=== PATIENT | female | born 1945 | race Caucasian/White ===

== ENCOUNTER → 2017-09-06 | Outpatient (CLI) | payer MEDICARE ==
[2017-09-06 09:33] LABS: ALT 38 U/L (9-52); AST 26 U/L (14-36); Albumin 3.7 g/dL (3.5-5.0); Alkaline Phosphatase 60 U/L (38-126); Anion Gap 6 mmol/L; Blood Urea Nitrogen 14 mg/dL (7-17); Calcium 9.4 mg/dL (8.4-10.2); Carbon Dioxide 24 mmol/L (22-30); Chloride 111 mmol/L (98-107); Cholesterol 117 mg/dL (<200); Glucose 85 mg/dL (74-99); HDL Cholesterol 39 mg/dL (40-60); LDL Cholesterol,Calculated 50 mg/dL (0-99); Potassium 4.6 mmol/L (3.5-5.1); Sodium 141 mmol/L (137-145); Total Bilirubin 0.5 mg/dL (0.2-1.3); Triglycerides 140 mg/dL (<150)
[2017-09-06 18:48] LABS: Hemoglobin A1C 7.8 % (4.0-6.0)
== END | disposition home or self-care (01) ==
LOC: LABWHC1 08:34
PROVIDERS: ATTEND Internal Medicine Endocrinology, Diabetes & Metabolism
DX: E11.65 Type 2 diabetes mellitus with hyperglycemia (principal)
CPT/HCPCS: 36415; 80053; 80061; 82043; 82570; 83036

== ENCOUNTER 2017-10-22 03:36 | Emergency (ER) | payer MEDICARE ==
[2017-10-22 03:47] VITALS: RESP 16
[2017-10-22 03:53] LABS: Glucose,Whole Blood 118 mg/dL (75-99)
[2017-10-22] MEDS ORDERED: DEXTROSE 5%-0.9% NACL 1,000 ML IV SCH (04:00)
[2017-10-22 04:02] LABS: Basophils # (A) 0.1 k/uL (0-0.2); Basophils % (A) 0 %; Eosinophils # (A) 0.1 k/uL (0-0.7); Eosinophils % (A) 1 %; HGB 16.1 gm/dL (11.4-16.0); Lymphocytes # (A) 2.4 k/uL (1.0-4.8); Lymphocytes % (A) 20 %; MCH 32.2 pg (25.0-35.0); MCHC 32.8 g/dL (31.0-37.0); Mean Platelet Volume 6.5; Monocytes # (A) 0.7 k/uL (0-1.0); Monocytes % (A) 6 %; Neutrophils # (A) 8.5 k/uL (1.3-7.7); Neutrophils % (A) 71 %; Platelet Count 302 k/uL (150-450); RDW 13.2 % (11.5-15.5); WBC 11.9 k/uL (3.8-10.6)
[2017-10-22 04:12] LABS: INR 1.1 (<1.2); Partial Thromboplastin Time 23.8 sec (22.0-30.0); Prothrombin Time 10.4 sec (9.0-12.0)
[2017-10-22 04:14] LABS: Albumin 4.4 g/dL (3.5-5.0); Calcium 10.3 mg/dL (8.4-10.2); Potassium 4.7 mmol/L (3.5-5.1); Total Bilirubin 0.6 mg/dL (0.2-1.3); Total Protein 7.4 g/dL (6.3-8.2)
--- NOTE | 2017-10-22 04:45 | XR ---
EXAM: XR Chest, 2 Views CLINICAL HISTORY: ITS.REASON XR Reason: Pain TECHNIQUE: Frontal and lateral views of the chest. COMPARISON: No relevant prior studies available. FINDINGS: Lungs: No evidence for consolidation. Likely nipple shadow overlying the lateral left lower lung. Increased AP diameter of the lungs with appearance suggestive of chronic obstructive pulmonary disease. Pleural space: Unremarkable. No pneumothorax. Heart: Normal size. Mediastinum: Atherosclerosis of the aortic arch is noted. Bones/joints: Multilevel degenerative disc disease with disc space height loss and osteophytosis.. IMPRESSION: No acute radiographic findings. COPD.
[2017-10-22 05:05] VITALS: TEMP 97
[2017-10-22 05:12] LABS: Appearance,Urine Cloudy (Clear); Bacteria,Urine Moderate /hpf; Bilirubin,Urine Negative (Negative); Blood,Urine Moderate (Negative); Color,Urine Yellow; Glucose,Urine (UA) Trace (Negative); Ketones,Urine Negative (Negative); Leukocyte Esterase,Urine Trace (Negative); Mucus,Urine Rare /hpf; Nitrite,Urine Negative (Negative); Protein,Urine Trace (Negative); RBC,Urine 4 /hpf (0-5); Specific Gravity,Urine 1.011 (1.001-1.035); Squamous Epithelial Cell,Urine 2 /hpf (0-4); Urobilinogen,Urine <2.0 mg/dL (<2.0); WBC,Urine 4 /hpf (0-5)
[2017-10-22] MEDS ORDERED: cefTRIAXone IN SWFI 1,000 MG/10 ML SYRINGE IVP STA (05:58)
[2017-10-22 06:22] VITALS: BP 113/68; PULSE 70
--- NOTE | 2017-10-22 06:31 | ED ---
General Adult HPI - General Chief complaint: Nausea/Vomiting/Diarrhea Stated complaint: Hypoglycemia Time Seen by Provider: 10/22/17 03:45 Source: patient, EMS Mode of arrival: EMS Limitations: no limitations - History of Present Illness Initial comments: Patient presented to the ED via EMS for evaluation of hypoglycemia. Patient reports that she has been in her usual state of health, eating her usual diet, she took her usual dose of both short acting which is 5 units and long-acting which is 20 units of insulin at dinnertime, ate her dinner and went to bed. She reports that the neck showing she knows there were Paramedics in her house. at bedside reports that he woke during the night and noted the patient was cold, drenched in sweat and he could not wake her up. He checked her glucose and noted that it was in the 30s, 911 was called, EMS arrived on scene reported her glucose was 19. The establish an IV gave an amp of D50. The patient came awake and alert and oriented. They were encouraging her to eat and drink, she was asking for water but they gave her an [place] muffin with peanut butter and juice. She had been eating watermelon and when she attempted to eat the muffin with peanut butter she became nauseated and had a episode of vomiting at which time EMS advised that she needed to come to the ER for further management of her glucose. states that she has had one other episode of hypoglycemia similar to this. That episode also occurred in the summertime, patient reports that with very hot out she has trouble managing her glucose. - Related Data Previous Rx's Medication Instructions Recorded Nitrofurantoin Monohyd/M-Cryst 100 mg PO Q12HR #10 cap 10/22/17 [Macrobid] Allergies Allergy/AdvReac Type Severity Reaction Status Date / Time No Known Allergies Allergy Verified 10/22/17 03:47 Review of Systems ROS Statement: Those systems with pertinent positive or pertinent negative responses have been documented in the HPI. ROS Other: All systems not noted in ROS Statement are negative. Past Medical History Past Medical History: COPD, Diabetes Mellitus History of Any Multi-Drug Resistant Organisms: None Reported Past Surgical History: Orthopedic Surgery Past Psychological History: No Psychological Hx Reported Smoking Status: Current every day smoker Past Alcohol Use History: None Reported Past Drug Use History: None Reported General Exam - General Exam Comments Initial Comments: GENERAL: Patient is well-developed and well-nourished. Patient is nontoxic and well- hydrated and is in no distress. As noted that the patient's pants are somewhat difficult because she was diaphoretic however her sugar has been changed and her hair is dried HENT: Normocephalic, Atraumatic. Neck is soft and supple. No significant lymphadenopathy is noted. Oropharynx is clear. Moist mucous membranes. Neck has full range of motion without eliciting any pain. EYES: The sclera were anicteric and conjunctiva were pink and moist. Extraocular movements were intact and pupils were equal round and reactive to light. Eyelids were unremarkable. PULMONARY: Unlabored respirations. Good breath sounds bilaterally. No audible rales rhonchi or wheezing was noted. CARDIOVASCULAR: There is a regular rate and rhythm without any murmurs gallops or rubs. ABDOMEN: Soft and nontender with normal bowel sounds. SKIN: Skin is clear with no lesions or rashes and otherwise unremarkable. NEUROLOGIC: Patient is alert and oriented x3. Cranial nerves II through XII are grossly intact. Motor and sensory are also intact. Normal speech, volume and content. Symmetrical smile. MUSCULOSKELETAL: Normal extremities with adequate strength and full range of motion. No lower extremity swelling or edema. No calf tenderness. LYMPHATICS: No significant lymphadenopathy is noted PSYCHIATRIC: Normal psychiatric evaluation. Limitations: no limitations Limitations: no limitations Course Vital Signs 10/22/17 10/22/17 10/22/17 03:45 04:47 06:00 Temperature 97 F L Pulse Rate 79 79 70 Respiratory 16 16 16 Rate Blood Pressure 145/78 119/65 113/68 O2 Sat by Pulse 99 99 97 Oximetry Medical Decision Making - Medical Decision Making The patient was seen and evaluated, history is obtained from patient, EMS and at bedside Patient had a episode of hypoglycemia at home, this occurred during her sleep, he says woke her who tested her sugar was in the 30s, EMS tested her sugar and noted that it was in the teens, she was given an amp of D50 and her mental status improved. She was able to eat watermelon but upon trying to eat a [place] muffin with peanut butter she vomited at which time EMS advised she come to the ER for evaluation Patient denies any change in diet or recent illness. She reports she took her regular dose of insulin. She's been on insulin for 20 years and doesn't believe she made a mistake Labs and imaging were ordered to see any underlying infection or ischemia could be the cause of patient's glucose on her body Due to hypoglycemia D5 normal saline was ordered for maintenance fluid, this was hung however due to the patient's positioning none of the fluid infused After the patient's baseline aside from evidence of urinary tract infection, urine culture was obtained, Rocephin was given Patient has remained awake and alert with stable glucose. She was given a chicken salad sandwich which she ate as well as a box of apple juice. She tolerated both of these without vomiting. Her repeat glucose was 185. At this time the patient is eager for discharge home. She reports she is feeling quite well. I discussed with the patient options for decreasing her long-acting insulin and making sure that she eats couplets carbohydrates for dinner time. All questions pertaining to care were answered best of my ability return parameters were discussed patient was discharged home. - Lab Data Result diagrams: 10/22/17 03:54 10/22/17 03:54 Lab Results 10/22/17 10/22/17 10/22/17 Range/Units 03:41 03:54 03:54 WBC 11.9 H (3.8-10.6) k/uL RBC 5.00 (3.80-5.40) m/uL Hgb 16.1 H (11.4-16.0) gm/dL Hct 49.0 H (34.0-46.0) % MCV 98.0 (80.0-100.0) fL MCH 32.2 (25.0-35.0) pg MCHC 32.8 (31.0-37.0) g/dL RDW 13.2 (11.5-15.5) % Plt Count 302 (150-450) k/uL Neutrophils % 71 % Lymphocytes % 20 % Monocytes % 6 % Eosinophils % 1 % Basophils % 0 % Neutrophils # 8.5 H (1.3-7.7) k/uL Lymphocytes # 2.4 (1.0-4.8) k/uL Monocytes # 0.7 (0-1.0) k/uL Eosinophils # 0.1 (0-0.7) k/uL Basophils # 0.1 (0-0.2) k/uL PT (9.0-12.0) sec INR (<1.2) APTT (22.0-30.0) sec Sodium 141 (137-145) mmol/L Potassium 4.7 (3.5-5.1) mmol/L Chloride 106 (98-107) mmol/L Carbon Dioxide 23 (22-30) mmol/L Anion Gap 12 mmol/L BUN 18 H (7-17) mg/dL Creatinine 0.80 (0.52-1.04) mg/dL Est GFR (CKD-EPI)AfAm 86 (>60 ml/min/1.73 sqM) Est GFR (CKD-EPI)NonAf 75 (>60 ml/min/1.73 sqM) Glucose 113 H (74-99) mg/dL POC Glucose (mg/dL) 118 H (75-99) mg/dL POC Glu Assembly Machine Tender ID Rocky Nguyen Calcium 10.3 H (8.4-10.2) mg/dL Total Bilirubin 0.6 (0.2-1.3) mg/dL AST 30 (14-36) U/L ALT 36 (9-52) U/L Alkaline Phosphatase 76 (38-126) U/L Troponin I (0.000-0.034) ng/mL Total Protein 7.4 (6.3-8.2) g/dL Albumin 4.4 (3.5-5.0) g/dL Urine Color Urine Appearance (Clear) Urine pH (5.0-8.0) Ur Specific [place] (1.001-1.035) Urine Protein (Negative) Urine Glucose (UA) (Negative) Urine Ketones (Negative) Urine Blood (Negative) Urine Nitrite (Negative) Urine Bilirubin (Negative) Urine Urobilinogen (<2.0) mg/dL Ur Leukocyte Esterase (Negative) Urine RBC (0-5) /hpf Urine WBC (0-5) /hpf Ur Squamous Epith Cells (0-4) /hpf Urine Bacteria (None) /hpf Urine Mucus (None) /hpf 10/22/17 10/22/17 10/22/17 Range/Units 03:54 03:54 04:48 WBC (3.8-10.6) k/uL RBC (3.80-5.40) m/uL Hgb (11.4-16.0) gm/dL Hct (34.0-46.0) % MCV (80.0-100.0) fL MCH (25.0-35.0) pg MCHC (31.0-37.0) g/dL RDW (11.5-15.5) % Plt Count (150-450) k/uL Neutrophils % % Lymphocytes % % Monocytes % % Eosinophils % % Basophils % % Neutrophils # (1.3-7.7) k/uL Lymphocytes # (1.0-4.8) k/uL Monocytes # (0-1.0) k/uL Eosinophils # (0-0.7) k/uL Basophils # (0-0.2) k/uL PT 10.4 (9.0-12.0) sec INR 1.1 (<1.2) APTT 23.8 (22.0-30.0) sec Sodium (137-145) mmol/L Potassium (3.5-5.1) mmol/L Chloride (98-107) mmol/L Carbon Dioxide (22-30) mmol/L Anion Gap mmol/L BUN (7-17) mg/dL Creatinine (0.52-1.04) mg/dL Est GFR (CKD-EPI)AfAm (>60 ml/min/1.73 sqM) Est GFR (CKD-EPI)NonAf (>60 ml/min/1.73 sqM) Glucose (74-99) mg/dL POC Glucose (mg/dL) (75-99) mg/dL POC Glu Assembly Machine Tender ID Calcium (8.4-10.2) mg/dL Total Bilirubin (0.2-1.3) mg/dL AST (14-36) U/L ALT (9-52) U/L Alkaline Phosphatase (38-126) U/L Troponin I <0.012 (0.000-0.034) ng/mL Total Protein (6.3-8.2) g/dL Albumin (3.5-5.0) g/dL Urine Color Yellow Urine Appearance Cloudy H (Clear) Urine pH 5.0 (5.0-8.0) Ur Specific [place] 1.011 (1.001-1.035) Urine Protein Trace H (Negative) Urine Glucose (UA) Trace H (Negative) Urine Ketones Negative (Negative) Urine Blood Moderate H (Negative) Urine Nitrite Negative (Negative) Urine Bilirubin Negative (Negative) Urine Urobilinogen <2.0 (<2.0) mg/dL Ur Leukocyte Esterase Trace H (Negative) Urine RBC 4 (0-5) /hpf Urine WBC 4 (0-5) /hpf Ur Squamous Epith Cells 2 (0-4) /hpf Urine Bacteria Moderate H (None) /hpf Urine Mucus Rare H (None) /hpf 10/22/17 Range/Units 06:31 WBC (3.8-10.6) k/uL RBC (3.80-5.40) m/uL Hgb (11.4-16.0) gm/dL Hct (34.0-46.0) % MCV (80.0-100.0) fL MCH (25.0-35.0) pg MCHC (31.0-37.0) g/dL RDW (11.5-15.5) % Plt Count (150-450) k/uL Neutrophils % % Lymphocytes % % Monocytes % % Eosinophils % % Basophils % % Neutrophils # (1.3-7.7) k/uL Lymphocytes # (1.0-4.8) k/uL Monocytes # (0-1.0) k/uL Eosinophils # (0-0.7) k/uL Basophils # (0-0.2) k/uL PT (9.0-12.0) sec INR (<1.2) APTT (22.0-30.0) sec Sodium (137-145) mmol/L Potassium (3.5-5.1) mmol/L Chloride (98-107) mmol/L Carbon Dioxide (22-30) mmol/L Anion Gap mmol/L BUN (7-17) mg/dL Creatinine (0.52-1.04) mg/dL Est GFR (CKD-EPI)AfAm (>60 ml/min/1.73 sqM) Est GFR (CKD-EPI)NonAf (>60 ml/min/1.73 sqM) Glucose (74-99) mg/dL POC Glucose (mg/dL) 187 H (75-99) mg/dL POC Glu Assembly Machine Tender ID Rocky Nguyen Calcium (8.4-10.2) mg/dL Total Bilirubin (0.2-1.3) mg/dL AST (14-36) U/L ALT (9-52) U/L Alkaline Phosphatase (38-126) U/L Troponin I (0.000-0.034) ng/mL Total Protein (6.3-8.2) g/dL Albumin (3.5-5.0) g/dL Urine Color Urine Appearance (Clear) Urine pH (5.0-8.0) Ur Specific [place] (1.001-1.035) Urine Protein (Negative) Urine Glucose (UA) (Negative) Urine Ketones (Negative) Urine Blood (Negative) Urine Nitrite (Negative) Urine Bilirubin (Negative) Urine Urobilinogen (<2.0) mg/dL Ur Leukocyte Esterase (Negative) Urine RBC (0-5) /hpf Urine WBC (0-5) /hpf Ur Squamous Epith Cells (0-4) /hpf Urine Bacteria (None) /hpf Urine Mucus (None) /hpf Disposition Clinical Impression: Hypoglycemia, UTI (urinary tract infection) Disposition: HOME SELF-CARE Instructions: Hypoglycemia in a Person with Diabetes (ED), Acute Nausea and Vomiting (ED) Prescriptions: Nitrofurantoin Monohyd/M-Cryst [Macrobid] 100 mg PO Q12HR #10 cap Is patient prescribed a controlled substance at d/c from ED?: No Referrals: Baldemar Sheridan MD [Primary Care Provider] - 1-2 days
[2017-10-22 06:34] LABS: Glucose,Whole Blood 187 mg/dL (75-99)
== END 2017-10-22 06:48 | disposition home or self-care (01) ==
LOC: EC 03:36
DX: E11.649 Type 2 diabetes mellitus with hypoglycemia without coma (principal); N39.0 Urinary tract infection, site not specified; F17.200 Nicotine dependence, unspecified, uncomplicated
CPT/HCPCS: 36415; 93005; 80053; 84484; 85025; 85610; 85730; 81001; 87086; 71046; 99285; 96374; J0696; 87077; 87186

== ENCOUNTER 2022-02-18 01:05 | Emergency (ER) | payer MEDICARE ==
[2022-02-18] MEDS ORDERED: NITROGLYCERIN SL TABS 0.4 MG TAB SUBLINGUAL PRN (01:19)
[2022-02-18 01:20] LABS: Glucose,Whole Blood 196 mg/dL (70-110)
--- NOTE | 2022-02-18 01:58 | ED ---
Chest Pain HPI - General Stated Complaint: Chest Pain Time Seen by Provider: 02/18/22 01:19 Source: family, EMS Mode of arrival: EMS Limitations: altered mental status - History of Present Illness Initial Comments: This patient is 77-year-old woman with history of previous CAD having 2 stents placed in the past, she developed substernal chest pain shortly after midnight. History is from the patient's as patient was nonverbal. She also was diaphoretic, had nausea vomiting. When the pain was very severe, they phoned EMS who brought the patient here and shortly after that she became unresponsive. MD Complaint: chest pain Onset/Timin -: hour(s) Onset: during rest Pain Location: substernal Pain Radiation: none Anginal Symptoms: nausea, vomiting, diaphoresis Treatments Prior to Arrival: oxygen - Related Data Previous Rx's Medication Instructions Recorded Nitrofurantoin Monohyd/M-Cryst 100 mg PO Q12HR #10 cap 10/22/17 [Macrobid] Allergies Allergy/AdvReac Type Severity Reaction Status Date / Time No Known Allergies Allergy Verified 10/22/17 03:47 Review of Systems ROS Statement: Those systems with pertinent positive or pertinent negative responses have been documented in the HPI. ROS Other: All systems not noted in ROS Statement are negative. Limitations: ROS unobtainable due to patients medical condition Past Medical History Past Medical History: COPD, Diabetes Mellitus History of Any Multi-Drug Resistant Organisms: None Reported Past Surgical History: Orthopedic Surgery Past Psychological History: No Psychological Hx Reported Past Alcohol Use History: None Reported Past Drug Use History: None Reported General Exam General appearance: other (Patient is unresponsive) Head exam: Present: atraumatic, normocephalic Eye exam: Absent: scleral icterus, conjunctival injection ENT exam: Present: other (Mucosa cyanotic) Neck exam: Present: normal inspection Respiratory exam: Present: other (No spontaneous inspiratory effort. There are a few scattered rhonchi with bagging) Cardiovascular Exam: Present: other (No palpable pulses. No palpable PMI. No cardiac sounds) GI/Abdominal exam: Present: soft. Absent: tenderness, rigid, mass Extremities exam: Present: normal inspection. Absent: normal capillary refill, pedal edema Back exam: Present: normal inspection Neurological exam: Present: other (Patient is unresponsive) Expanded Eye Response: (1) no response Motor Response: (1) no motor response Verbal Response: (1) no verbal response Jerome Total: 3 Skin exam: Present: dry, intact, mottled. Absent: rash Course Vital Signs 02/18/22 01:15 Fraction of 100 Inspired Oxygen (FIO2) Chest Pain MDM - MDM This patient is a 77-year-old woman brought by ambulance to have evaluation for chest pain. On arrival as EMS was transferred patient to the bed she became unresponsive and ACLS protocol was started. The patient did initially get an organized rhythm back and I phoned Dr. Alvarez, utility porter to discuss the Senior Infrastructure Engineer as the monitor did appear to show ST elevations on the monitor. The label sewer was activated. Patient was receiving fluids and blood was drawn for lab. Shortly after that the patient did lose pulses and ACLS was again commenced. The patient eventually had no response to the ACLS efforts. He bedside ultrasound was used 2 view the patient's heart during the last round of ACLS and did confirm that there was absolute no cardiac motion with the PDA the patient was then pronounced at 143. Case discussed with Dr. Sarmiento who is covering for Dr. Sheridan. Case discussed with the medical billing representative. Was pt. sent in by a medical professional or institution? @ no Did you speak to anyone other than the patient for history? @ Did you review nursing and triage notes? @ -[agree Were old charts reviewed? @ -no Differential Diagnosis? @ - Acute coronary syndromes, massive pulmonary embolism, aortic dissection, intracranial artery dissection EKG interpreted by me (3pts min.)? @ -yes X-rays interpreted by me (1pt min.)? @ no CT interpreted by me (1pt min.)? @ -no U/S interpreted by me (1pt. min.)? @ -[none] What testing was considered but not performed? (CT, X-rays, U/S, labs)? Why? @ [ What meds were considered but not given? Why? @ -[none] Did you discuss the management of the patient with other professionals? @ -no Did you reconcile home meds? @ -[none] Was smoking cessation discussed for >3mins.? @ -[none] Was critical care preformed (if so, how long)? @ -yes approximately 30 minutes Were there social determinants of health that impacted care today? How? (Homelessness, low income, unemployed, alcoholism, drug addiction, transportation, low edu. Level, literacy, decrease access to med. care, long term, rehab)? @ -[no Was there de-escalation of care discussed even if they declined? (Discuss DNR or withdrawal of care, Hospice)? @ -[no What co-morbidities impacted this encounter? (DM, HTN, Smoking, COPD, CAD, Cancer, CVA, Hep., AIDS, mental health diagnosis, sleep apnea, morbid obesity)? @ -none Was patient admitted / discharged? @ Undiagnosed new problem with uncertain prognosis? @ -[none] Drug Therapy requiring intensive monitoring for toxicity (Heparin, Nitro, Insulin, Cardizem)? @ -[none] Were any procedures done? @ -[none] Diagnosis/symptom? @ -Cardiopulmonary arrest Acute, or Chronic, or Acute on Chronic? @ -Acute Uncomplicated (without systemic symptoms) or Complicated (systemic symptoms)? @ -Complicated Side effects of treatment? @ -[none] Exacerbation, Progression, or Severe Exacerbation] @ -[no] Poses a threat to life or bodily function? @ -[Yes Critical Care Time Critical Care Time: Yes (30 minutes) Disposition Clinical Impression: Cardiac arrest Disposition: Condition: Undetermined Is patient prescribed a controlled substance at d/c from ED?: No Referrals: Baldemar Sheridan MD [Primary Care Provider] - 1-2 days Preliminary Cause of : Cardiopulmonary arrest
== END 2022-02-18 04:46 | disposition expired ==
LOC: EC 01:05
DX: I46.9 Cardiac arrest, cause unspecified (principal); J44.9 Chronic obstructive pulmonary disease, unspecified; E11.9 Type 2 diabetes mellitus without complications
CPT/HCPCS: 36415; 94002; 99285